=== PATIENT | male | born 1965 | race Caucasian/White ===

== ENCOUNTER → 2021-09-19 | Outpatient (CLI) | payer BC | END | disposition home or self-care (01) | LOC: LABWHC1 15:58 | PROVIDERS: ATTEND Urology | DX: C61 Malignant neoplasm of prostate (principal) | CPT/HCPCS: 36415; 84153 ==

== ENCOUNTER 2021-09-21 10:50 | Emergency (ER) | payer BC, OTHER ==
[2021-09-21 11:07] VITALS: RESP 18; TEMP 98.4
--- NOTE | 2021-09-21 11:18 | XR ---
EXAMINATION TYPE: XR hand complete LT DATE OF EXAM: 09/21/2021 COMPARISON: NONE HISTORY: Pain TECHNIQUE: Three views are submitted. FINDINGS: The osseous structures are intact. The joint spaces are preserved and there is no acute fracture or dislocation. Tiny metallic density overlying the distal phalanx second digit represent chronic forei gn body. Overlying the dorsal surface of the distal margin of the middle phalanx third digit there is intermediate density. IMPRESSION: 1. No definite acute fracture or dislocation if symptoms persist, follow-up study in 7 to 10 days wo uld be suggested. 2. Intermediate density in the soft tissue dorsal surface third digit distal margin middle phalanx co rrelate for possible foreign body. 3. Correlate for chronic foreign body metallic density overlying distal phalanx second digit.
[2021-09-21] MEDS ORDERED: DIPH,PERTUS(ACELL)TETVAC-LF 0.5 ML VIAL IM ONE (15:07)
[2021-09-21] MEDS ORDERED: LIDOCAINE 1% INJ 10MG/ML (5 ML VIAL-PF) SQ ONE (15:07)
--- NOTE | 2021-09-21 15:43 | ED ---
Wound/Laceration HPI - General Chief Complaint: Wound/Laceration Stated Complaint: [facility] - finger injury Time Seen by Provider: 09/21/21 14:58 Source: patient Mode of arrival: ambulatory Limitations: no limitations - History of Present Illness Initial Comments: Patient is a 55-year-old male who presents with left middle finger laceration. 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 Patient reports minimal pain. No numbness or tingling. Last tetanus unknown. - Related Data Home Medications Medication Instructions Recorded Confirmed Pantoprazole Sodium [Protonix] 40 mg PO DAILY 09/02/20 11/19/20 lisinopriL [Zestril] 20 mg PO DAILY 09/02/20 11/19/20 levoFLOXacin 500 mg PO DAILY 11/19/20 11/19/20 Previous Rx's Medication Instructions Recorded Cephalexin [Keflex] 500 mg PO Q6HR 5 Days #20 cap 09/21/21 Allergies Allergy/AdvReac Type Severity Reaction Status Date / Time watermelon Allergy Anaphylaxis Verified 09/21/21 11:03 Review of Systems ROS Statement: Those systems with pertinent positive or pertinent negative responses have been documented in the HPI. ROS Other: All systems not noted in ROS Statement are negative. Past Medical History Past Medical History: No Reported History History of Any Multi-Drug Resistant Organisms: None Reported Past Surgical History: Hernia Repair Additional Past Surgical History / Comment(s): carpal tunnel bi-lat. Past Psychological History: No Psychological Hx Reported Smoking Status: Never smoker Past Alcohol Use History: Occasional Past Drug Use History: None Reported General Exam Limitations: no limitations General appearance: alert, in no apparent distress Head exam: Present: atraumatic, normocephalic, normal inspection Eye exam: Present: normal appearance, PERRL, EOMI. Absent: scleral icterus, conjunctival injection, periorbital swelling Respiratory exam: Present: normal lung sounds bilaterally. Absent: respiratory distress, wheezes, rales, rhonchi, stridor Cardiovascular Exam: Present: regular rate, normal rhythm, normal heart sounds. Absent: systolic murmur, diastolic murmur, rubs, gallop, clicks Extremities exam: Present: other (2 cm laceration over the left middle phalange, non bleeding ) Neurological exam: Present: alert, oriented X3, CN II-XII intact Psychiatric exam: Present: normal affect, normal mood Skin exam: Present: warm, dry, intact, normal color. Absent: rash Course Vital Signs 09/21/21 10:57 Temperature 98.4 F Pulse Rate 89 Respiratory 18 Rate Blood Pressure 149/81 O2 Sat by Pulse 97 Oximetry Procedures - Laceration Laceration #1 Consent Obtained: verbal consent Indication: laceration Site: other (Left middle finger) Description: linear Depth: simple, single layer Sedation/Analgesia: none Anesthesia Technique: nerve block Amount (mls): 5 Pre-repair: wound explored, irrigated extensively, deep structures intact, foreign body removed Type of Sutures: nylon Size of Sutures: 4-0 Number of Sutures: 2 Technique: simple, interrupted Patient Tolerated Procedure: well, no complications Medical Decision Making - Medical Decision Making This is a 55-year-old male who presents with left middle finger laceration. Thorough history and examination were performed. 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 He reports minimal pain. No numbness or tingling. Full range of motion. Neurovascularly intact. There is a 2 cm laceration over the left middle finger DIP joint, non bleeding. X-ray shows no definite fracture or dislocation as well as an intermediate density in the soft tissue dorsal surface of the third digit distal margin of the middle phalanx. The wound was explored and irrigated extensively. I was able to find a very small piece of metal embedded in the laceration which I removed. The wound was well approximated with 2 sutures. Patient tolerated the procedure well and there were no complications. Tetanus updated. Patient instructed to follow-up with financial specialist in 1-2 days. He is instructed to return for suture removal in 10-14 days unless financial specialist as otherwise. I will send him home with Keflex since this is a dirty wound with potential foreign body. Wound care education was provided. Patient verbalizes understanding and is agreeable to this plan. Dr. Buchanan is my attending. Disposition Clinical Impression: Laceration Disposition: HOME SELF-CARE Instructions (If sedation given, give patient instructions): Laceration (ED) Additional Instructions: Please take antibiotics as directed. Follow-up with financial specialist in 1- 2 days. Return for suture removal in 10-14 days. Return to the emergency department if you experience new, concerning, or worsening symptoms. Prescriptions: Cephalexin [Keflex] 500 mg PO Q6HR 5 Days #20 cap Is patient prescribed a controlled substance at d/c from ED?: No Referrals: Ralph Grimaldo MD [Primary Care Provider] - 1-2 days Rick Colbert MD [STAFF PHYSICIAN] - 1-2 days Time of Disposition: 15:42
[2021-09-21 16:00] VITALS: BP 144/78; PULSE 79
== END 2021-09-21 16:00 | disposition home or self-care (01) ==
LOC: EC 10:50
DX: S61.213A Laceration without foreign body of left middle finger without damage to nail, initial encounter (principal); Z91.018 Allergy to other foods; Z23 Encounter for immunization; W31.0XXA Contact with mining and earth-drilling machinery, initial encounter
CPT/HCPCS: 73130; 90715; 12001; 90471; 99283; J2001

== ENCOUNTER → 2022-04-11 | Outpatient (CLI) | payer BC | END | disposition home or self-care (01) | LOC: LABWHC1 16:01 | PROVIDERS: ATTEND Urology | DX: C61 Malignant neoplasm of prostate (principal) | CPT/HCPCS: 36415; 84153 ==

== ENCOUNTER → 2023-09-05 | Outpatient (CLI) | payer BC | END | disposition home or self-care (01) | LOC: LABWHC1 16:01 | PROVIDERS: ATTEND Radiology Radiation Oncology | DX: C61 Malignant neoplasm of prostate (principal) | CPT/HCPCS: 36415; 84153 ==

== ENCOUNTER → 2024-03-06 | Outpatient (CLI) | payer BC | END | disposition home or self-care (01) | LOC: LABWHC1 16:10 | PROVIDERS: ATTEND Radiology Radiation Oncology | DX: C61 Malignant neoplasm of prostate (principal) | CPT/HCPCS: 36415; 84153 ==

== ENCOUNTER → 2024-09-03 | Outpatient (CLI) | payer BC | END | disposition home or self-care (01) | LOC: LABWHC1 14:59 | PROVIDERS: ATTEND Radiology Radiation Oncology | DX: C61 Malignant neoplasm of prostate (principal) | CPT/HCPCS: 36415; 84153 ==